=== PATIENT | male | born 1945 | race Caucasian/White ===

== ENCOUNTER 2016-09-07 12:01 | Inpatient (IN) | payer MEDICARE ==
--- NOTE | 2016-09-07 12:48 | ERNOTE ---
Dyspnea - Date Date of Service: 09/07/16 - General Presenting Symptoms: shortness of breath Time Seen by Provider: 09/07/16 12:27 Source: patient Exam Limitations: no limitations - Immun/Allergies/Home Medications Immunizations: IMMUNIZATION HX Immunizations Up to Date Yes History of Influenza Vaccine Yes Hx Pneumococcal Vaccination Yes Allergies/Adverse Reactions: Allergies No Known Allergies Allergy (Unverified 08/24/16 12:58) Home Medications: HOME MEDICATIONS Aspirin [Aspirin Enteric Coated] 81 mg PO DAILY 08/24/16 [Last Taken Unknown] Cholecalciferol (Vitamin D3) [Vitamin D3] 2,000 unit PO DAILY 08/24/16 [Last Taken Unknown] Dexlansoprazole [Dexilant] 30 mg PO DAILY 08/24/16 [Last Taken Unknown] Ferrousal 325 mg PO DAILY 08/24/16 [Last Taken Unknown] Finasteride [Proscar] 5 mg PO DAILY 08/24/16 [Last Taken Unknown] Fluticasone Propionate [Flonase] 1 spray NS BID 08/24/16 [Last Taken Unknown] Glipizide [Glucotrol] 10 mg PO BID 08/24/16 [Last Taken Unknown] Indoor/Outdoor Allergy Relief 10 mg PO DAILY 08/24/16 [Last Taken Unknown] Lisinopril [Zestril] 20 mg PO DAILY 08/24/16 [Last Taken Unknown] Metoprolol Tartrate [Lopressor] 50 mg PO BID 08/24/16 [Last Taken Unknown] Nitroglycerin [Nitrostat] 0.4 mg SL [id number] PRN 08/24/16 [Last Taken Unknown] Pioglitazone HCl/Metformin HCl [Actoplus Met 15 mg-500 mg Tab] 1 each PO BID [Last Taken Unknown] Rosuvastatin Calcium [Crestor] 10 mg PO DAILY 08/24/16 [Last Taken Unknown] Ticagrelor [Brilinta] 90 mg PO BID 08/24/16 [Last Taken Unknown] Morphine Sulfate [Ms Contin] 15 mg PO Q12H #20 tablet.sa 08/28/16 [Last Taken Unknown] Sennosides/Docusate Sodium [Senokot-S] 2 tab PO HS tablet 08/28/16 [Last Taken Unknown] - History of Present Illness Narrative: Pt. comes in with c/o dyspnea for the past three weeks that worsened suddenly yesterday. Pt. has been taking long and short acting morphine for pain and states that he sometimes forgets to breathe but has not had any other symptoms. Pt. denies any fever, cough, rhinorrhea, CP, leg swelling. or other symptoms at this time. Review of Systems - Review of Systems Constitutional: Present: weakness, fatigue. Absent: recent illness, fever, chills, malaise EYE: Present: no symptoms reported ENT: Present: no symptoms reported Respiratory: Present: shortness of breath. Absent: cough, wheezing Cardiology: Present: no symptoms reported. Absent: chest pain, palpitations, edema Gastrointestinal/Abdominal: Present: no symptoms reported. Absent: nausea, vomiting, diarrhea, constipation, abdominal pain Genitourinary: Present: no symptoms reported Musculoskeletal: Present: no symptoms reported. Absent: back pain, joint pain Skin: Present: no symptoms reported Neurological: Present: no symptoms reported. Absent: headache, dizziness/light- headedness, numbness, tingling All Other Systems: All systems neg except as marked - Patient's Past Medical History Patient History - Medical: Diabetes Type 2 Patient History - Cancer: No Hx of Cancer Patient History - Surgical Procedures: Appendectomy, Coronary Bypass Surgery, Cardiac stent - Family History Mother Family History - Medical: Diabetes Type 2 - Social History Living Situations: spouse Smoking Status: Former smoker Physical Exam - Physical Exam General Appearance: Present: wd/wn, alert, no apparent distress Eye Exam: Normal inspection: bilateral, PERRL: bilateral, EOMI: bilateral Ears, Nose, Throat: Present: normal ENT inspection, hearing grossly normal, normal pharynx Neck: Present: normal inspection, nontender. Absent: lymphadenopathy (R), lymphadenopathy (L) Respiratory: Present: no respiratory distress, no accessory muscle use, chest nontender, decreased breath sounds Cardiovascular/Chest: Present: regular rate, rhythm, no murmur, normal peripheral pulses Gastrointestinal/Abdominal: Present: normal bowel sounds, nontender, nondistended, soft, no organomegaly Extremity Exam: Present: normal inspection, non-tender, no edema, decreased range of motion - L hip Neurological Exam: Present: alert, oriented, normal mood/affect, no motor/ sensory deficits, motor weakness - generalized Skin Exam: Present: warm/dry, pallor ED Progress - Date and Time Seen: Date and Time: 09/07/16 12:47 Given pt. recent history of hip replacement am concerned for narcotic related pneumonia or PE. 09/07/16 16:31 Discussed risks and benefits of CT including renal failure and Pt. gave permission to proceed with the CT scan 09/07/16 17:[address] Amor and we will admit pt. for observation of dehydration and SOB - Results and Orders Patient's Lab Results:: I have reviewed the patient's lab results. - Vital Signs Patient's Vital Signs:: I have reviewed the patient's vital signs. Vital Signs: Vital Signs 09/07/16 12:06 Temperature 36.6 C Pulse Rate 73 Respiratory 20 Rate Blood Pressure 92/50 O2 Sat by Pulse 97 Oximetry - CT/Ultrasound CT/Ultrasound Narrative: CT chest discussed with Dr Cortés and Pt. without central PE but has ground glass opacities BLL. - Progress/Reassessment Chief Complaint: Dyspnea Departure Clinical Impression: Shortness of breath, Dehydration - Departure Disposition: [facility] Condition: Fair Referrals: [Primary Care Provider] -
[2016-09-07 12:52] LABS: Hematocrit 32.1 % (42.0-52.0); Hemoglobin 10.2 gm/dL (13.5-18.0); Mean Cell Volume 80.5 fl (78-100); Mean Corpuscular Hemoglobin 25.6 pg (27-31); Mean Corpuscular Hgb Conc 31.8 g/dl (32-36); Mean Platelet Volume 8.7 fl (6.0-9.5); Neutrophil # 7.5 K/mm3 (1.3-6.0); Neutrophil % 78.9 % (42-75.0); Platelet Count 356 K/mm3 (150-450); Red Blood Count 3.99 M/mm3 (4.7-6.0); Red Cell Distribution Width 16.4 % (11.5-14.0); White Blood Count 9.5 K/mm3 (4.0-10.5)
[2016-09-07 13:05] LABS: Albumin * 3.1 gm/dl (3.4-5.0); Anion Gap 18.4 mmol/L (6.8-13.8); BUN/Creatinine Ratio 18.8 (9.0-21.6); Bilirubin, Total 0.6 mg/dL (0.0-1.1); Ca. Corrected For Albumin 9.1 mg/dL (8.4-10.2); Calcium * 8.7 mg/dL (7.9-10.9); Carbon Dioxide 23.5 mmol/L (24-32.6); Potassium 4.9 mmol/L (3.4-4.6); Total Protein 7.5 gm/dL (6.2-8.2)
[2016-09-07] MEDS ORDERED: NORMAL SALINE 1,000 ML IV ONE (13:18)
[2016-09-07] MEDS ORDERED: ALBUTEROL SULFATE 2.5 MG/0.5 ML VIAL.NEB IH ONE ×2 (18:20→20:25)
[2016-09-07] MEDS ORDERED: ACETAMINOPHEN 500 MG TABLET PO PRN (18:24)
[2016-09-07] MEDS ORDERED: predniSONE 20 MG TABLET PO SCH (18:30)
[2016-09-07] MEDS: NORMAL SALINE 1,000 ML IV PRN (18:52)
[2016-09-07] MEDS ORDERED: NITROGLYCERIN 0.4 MG/TAB BTL SL ONE (21:03)
[2016-09-07] MEDS: NITROGLYCERIN 0.4 MG/TAB BTL SL PRN ×3 (21:06→21:23)
--- NOTE | 2016-09-07 22:05 | HP ---
Chief Complaint - Chief Complaint Date of Service: 09/07/16 Time of Service: 22:04 Chief Complaint: Shortness of breath History of Present Illness: Cesar is a 71 yo male that presented to the [facility] ER with 48 hours of worsening shortness of breath. He was scheduled to see Dr. Gill for post op follow up but was told to go to the ER with his symptoms. In the ER he reported progressive shortness of breath, denied chest pain. D-dimer was elevated, chest xray non acute. A chest CT was performed which showed some ground glass appearance but otherwise no acute findings. Due to significant dyspnea he was placed on oxygen and requested admit for observation and further evaluation. - Patient's Past Medical History Patient History - Medical: Diabetes Type 2, Osteoarthritis Patient History - Cardiac/Respiratory: Coronary Heart Disease, Hypertension, Hyperlipidemia Patient History - Cancer: No Hx of Cancer Patient History - Surgical Procedures: Appendectomy, Coronary Bypass Surgery, Cardiac stent, Total Hip Replacement - Family History Mother Family History - Medical: Diabetes Type 2 - Social History Living Situations: spouse Smoking Status: Former smoker Have you smoked in the past 12 months: No Alcohol Use: none Drug Use: none Review Of Systems (GEN) - Review of Systems Generalized/Overall Review: Present: Weakness. Absent: Chills, Fever EENTM: Present: No Symptoms Reported Respiratory: Present: Shortness of Breath. Absent: Cough Cardiac: Present: Chest Pain. Absent: Palpitations, Syncope Abdominal: Absent: Nausea, Vomiting, Hematemesis, Abdominal Pain Genitourinary: Present: No Symptoms Reported Musculoskeletal: Present: No Symptoms Reported Neurological: Present: No Symptoms Reported Skin: Present: No Symptoms Reported Allergies/Adverse Reactions: Allergies Allergy/AdvReac Type Severity Reaction Status Date / Time No Known Allergies Allergy Verified 09/07/16 17:47 Home Medications: HOME MEDICATIONS Aspirin [Aspirin Enteric Coated] 81 mg PO DAILY 08/24/16 [Last Taken Unknown] Cholecalciferol (Vitamin D3) [Vitamin D3] 2,000 unit PO DAILY 08/24/16 [Last Taken Unknown] Dexlansoprazole [Dexilant] 30 mg PO DAILY 08/24/16 [Last Taken Unknown] Ferrousal 325 mg PO DAILY 08/24/16 [Last Taken Unknown] Finasteride [Proscar] 5 mg PO DAILY 08/24/16 [Last Taken Unknown] Fluticasone Propionate [Flonase] 1 spray NS BID 08/24/16 [Last Taken Unknown] Glipizide [Glucotrol] 10 mg PO BID 08/24/16 [Last Taken Unknown] Indoor/Outdoor Allergy Relief 10 mg PO DAILY 08/24/16 [Last Taken Unknown] Lisinopril [Zestril] 20 mg PO DAILY 08/24/16 [Last Taken Unknown] Metoprolol Tartrate [Lopressor] 50 mg PO BID 08/24/16 [Last Taken Unknown] Nitroglycerin [Nitrostat] 0.4 mg SL [id number] PRN 08/24/16 [Last Taken Unknown] Pioglitazone HCl/Metformin HCl [Actoplus Met 15 mg-500 mg Tab] 1 each PO BID [Last Taken Unknown] Rosuvastatin Calcium [Crestor] 10 mg PO DAILY 08/24/16 [Last Taken Unknown] Ticagrelor [Brilinta] 90 mg PO BID 08/24/16 [Last Taken Unknown] Morphine Sulfate [Ms Contin] 15 mg PO Q12H #20 tablet.sa 08/28/16 [Last Taken Unknown] Sennosides/Docusate Sodium [Senokot-S] 2 tab PO HS tablet 08/28/16 [Last Taken Unknown] Exam - Exam Vital Signs: Vital Signs - Last Taken Temp 36.9 C 09/07/16 19:51 Pulse 86 09/07/16 20:37 Resp 20 09/07/16 20:37 BP 145/49 09/07/16 19:51 Pulse Ox 97 09/07/16 20:27 Constitutional: Present: Alert, Oriented x3, Cooperative ENT Exam: Present: hearing grossly normal Eye Exam: bilateral eye: normal inspection Respiratory: Present: lungs clear, normal breath sounds Cardiovascular/Chest: Present: regular rate, rhythm, no murmur Abdomen: Present: Normal bowel sounds, soft, nontender, nondistended Extremity: Present: normal inspection, normal capillary refill Skin Exam: Present: normal color, warm/dry, no cyanosis Lymphatic: Present: no adenopathy Appearance: Present: appropriate appearance, appropriate insight Diagnostic Studies: Laboratory Results WBC 9.5 K/mm3 (4.0-10.5) 09/07/16 12:45 RBC 3.99 M/mm3 (4.7-6.0) L 09/07/16 12:45 Hgb 10.2 gm/dL (13.5-18.0) L 09/07/16 12:45 Hct 32.1 % (42.0-52.0) L 09/07/16 12:45 MCV 80.5 fl (78-100) 09/07/16 12:45 MCH 25.6 pg (27-31) L 09/07/16 12:45 MCHC 31.8 g/dl (32-36) L 09/07/16 12:45 RDW 16.4 % (11.5-14.0) H 09/07/16 12:45 Plt Count 356 K/mm3 (150-450) 09/07/16 12:45 MPV 8.7 fl (6.0-9.5) 09/07/16 12:45 Immature Gran % (Auto) 0.70 % (0.001-0.429) H 09/07/16 12:45 Immature Gran # (Auto) 0.07 K/mm3 (0.000-0.0310) H 09/07/16 12:45 Neutrophils % 78.9 % (42-75.0) H 09/07/16 12:45 Lymphocytes % 9.6 % (20-51) L 09/07/16 12:45 Monocytes % 8.6 % (0.0-9) 09/07/16 12:45 Eosinophils % 1.7 % (0.0-3.0) 09/07/16 12:45 Basophils % 0.5 % (0.0-1.0) 09/07/16 12:45 Nucleated RBC % 0.0 k/mm3 (0-1) 09/07/16 12:45 Neutrophils # 7.5 K/mm3 (1.3-6.0) H 09/07/16 12:45 Lymphocytes # 0.9 k/mm3 (1.5-3.5) L 09/07/16 12:45 Monocytes # 0.8 k/mm3 (0.0-1.0) 09/07/16 12:45 Eosinophils # 0.2 k/mm3 (0.0-0.7) 09/07/16 12:45 Absolute Basophils 0.1 k/mm3 (0.0-0.1) 09/07/16 12:45 D-Dimer 4.33 mg/L (0.19-0.49) H 09/07/16 12:45 Sodium 137 mmol/L (132-142) 09/07/16 12:45 Plasma Sodium 137 mmol/L (130-142) 09/07/16 12:45 Potassium 4.9 mmol/L (3.4-4.6) H 09/07/16 12:45 Chloride 100 mmol/L (97-106) 09/07/16 12:45 Carbon Dioxide 23.5 mmol/L (24-32.6) L 09/07/16 12:45 Anion Gap 18.4 mmol/L (6.8-13.8) H 09/07/16 12:45 BUN 30 mg/dL (6-23) H 09/07/16 12:45 Creatinine 1.60 mg/dL (0.4-1.4) H 09/07/16 12:45 Est GFR (Non-Af Amer) 45 mL/min (60-130) L 09/07/16 12:45 BUN/Creatinine Ratio 18.8 (9.0-21.6) 09/07/16 12:45 Random Glucose 104 mg/dL (70-110) 09/07/16 12:45 Calcium 8.7 mg/dL (7.9-10.9) 09/07/16 12:45 Calcium Adj for Albumin 9.1 mg/dL (8.4-10.2) 09/07/16 12:45 Total Bilirubin 0.6 mg/dL (0.0-1.1) 09/07/16 12:45 AST 16 U/L (0-48) 09/07/16 12:45 ALT 16 U/L (19-67) L 09/07/16 12:45 Alkaline Phosphatase 87 U/L (50-170) 09/07/16 12:45 Troponin I Less than 0.017 ng/ml (0.00-0.10) 09/07/16 21:09 Total Protein 7.5 gm/dL (6.2-8.2) 09/07/16 12:45 Albumin 3.1 gm/dl (3.4-5.0) L 09/07/16 12:45 Assessment/Plan - Assessment/Plan (1) Shortness of breath Assessment: Cesar is a 71 yo male with extensive coronary heart disease. Will place on telemetry, obtain ECG, and obtain serial troponins. No chest pain in the ER or last few days. Patient with slight elevation of creatinine, will give IVFs. Expect 1 midnight stay, will admit to observation. Problem: Acute
[2016-09-08] MEDS: NORMAL SALINE 1,000 ML IV PRN ×2 (03:04→11:20)
[2016-09-08] MEDS ORDERED: HEPARIN SODIUM,PORCINE 5,000 UNITS/ML VIAL IV ONE (07:42)
[2016-09-08] MEDS ORDERED: HEPARIN SODIUM,PORCINE/D5W 25,000 UNITS/500 ML BAG IV SCH (07:45)
--- NOTE | 2016-09-08 08:38 | DS ---
Transfer Discharge Summary - Diagnosis(s)/Problems (1) Shortness of breath Problem: Acute (2) Non-STEMI (non-ST elevated myocardial infarction) Narrative: Cesar is a 71 yo male with extensive coronary heart disease with nearly 20 stents placed in his lifetime. He most recently had 4 stents placed in March 2016. He was admitted for shortness of breath that was progressive over the last 48 hours. Initial evaluation was positive for D-Dimer and ground glass appearance on Chest CT. No PE found. He was not having chest pain outside of the hospital or in the ER. He was admitted for observation with his shortness of breath. Initial troponin was undetectable and ECG was unchanged compared to priors. Once he arrived to the inpatient floor he began having left anterior chest wall heaviness and left arm achiness. There were no ECG changes. He was given nitroglycerin x 3 which resolved his symptoms. The rest of the evening he was symptom free. Repeat Troponin 6 hours later was elevated to critical range of 0.158 (critical above 0.1). He remained symptom free. With rising troponin his cardiology group at [facility] was contacted for transfer for cardiac catheterization. Discussed with Dr. Chamberlain who recommended that he has difficult to access coronary arteries and patient typically has procedures performed by Dr. Suárez at [facility] in [place]. I discussed case with Dr. Suárez who accepted patient transfer and recommended heparin 3000unit bolus and 1000units/hr drip until we can get him transferred to [facility] as there are currently not available beds. As the patient is currently symptom free I agree with this plan of action. Patient to be transferred once a bed becomes available. Problem: Acute - Course Procedures Performed: none - Results and Findings Results and Findings: Laboratory Results - last 24 hr 09/07/16 09/08/16 21:09 05:29 Troponin I Less than 0.017 0.158 H* - Medications Medications: Active Medications Sodium Chloride (Sodium Chloride 0.9%) 1,000 mls @ 125 mls/hr IV .Q8H PRN PRN Reason: HYDRATION Stop: 10/07/16 18:24 Last Admin: 09/08/16 03:04 Dose: 125 mls/hr Heparin Sodium/Dextrose (Heparin 25,000 Units/D5w 500 Ml) 25,000 units in 500 mls @ 20 mls/hr IV Q24H BEBA PRN Reason: 1,000 UNITS/HR Stop: 10/08/16 07:46 Last Admin: 09/08/16 08:05 Dose: 1,000 units/hr, 20 mls/hr Nitroglycerin (Nitrostat) 0.4 mg SL Q5MIN PRN PRN Reason: Chest Pain Stop: 10/07/16 21:06 Last Admin: 09/07/16 21:23 Dose: 0.4 mg Discontinued Medications Albuterol Sulfate (Albuterol Sulfate 2.5 Mg/0.5ml) 2.5 mg IH Q4HRT ONE Stop: 09/07/16 18:21 Last Admin: 09/07/16 20:27 Dose: 2.5 mg Heparin Sodium (Porcine) (Heparin Sodium) 3,000 units IV ONCE ONE Stop: 09/08/16 07:43 Last Admin: 09/08/16 08:04 Dose: 3,000 units Sodium Chloride (Sodium Chloride 0.9%) 1,000 mls @ 999 mls/hr IV .Q1H1M ONE Stop: 09/07/16 14:18 Last Admin: 09/07/16 17:03 Dose: 999 mls/hr Prednisone (Prednisone) 60 mg PO DAILY BEBA Stop: 09/09/16 18:31 Last Admin: 09/07/16 18:53 Dose: 60 mg - Disposition Disposition: Other health care facility Condition: Stable Discharge Date: 09/08/16
[2016-09-08 15:03] VITALS: BP 136/51
== END 2016-09-08 16:10 | disposition short-term general hospital (02) | DRG 282 ==
LOC: ER 12:01 → MS 17:29 → OBSVTOIN 09-08 11:40
PROVIDERS: ADMIT Family Medicine; ATTEND Family Medicine
DX: I21.4 Non-ST elevation (NSTEMI) myocardial infarction (principal); I25.10 Atherosclerotic heart disease of native coronary artery without angina pectoris; I10 Essential (primary) hypertension; E78.5 Hyperlipidemia, unspecified; E11.9 Type 2 diabetes mellitus without complications; Z79.82 Long term (current) use of aspirin; Z95.1 Presence of aortocoronary bypass graft; Z95.5 Presence of coronary angioplasty implant and graft; Z87.891 Personal history of nicotine dependence
CPT/HCPCS: 36415; 71020; 71260; 80053; 84484; 85025; 85379; 85730; 93005; 94640; 96360; 99283; G0378

== ENCOUNTER 2020-07-11 07:06 | Observation (INO) ==
[2020-07-11] MEDS ORDERED: NORMAL SALINE 1,000 ML IV ONE ×3 (07:28→11:07)
[2020-07-11 07:59] LABS: Hematocrit 31.9 % (42.0-52.0); Hemoglobin 9.9 gm/dL (13.5-18.0); Mean Cell Volume 88.9 fl (78-100); Mean Corpuscular Hemoglobin 27.6 pg (27-31); Mean Platelet Volume 9.9 fl (8-11.3); Neutrophil # 10.6 K/mm3 (1.3-6.0); Neutrophil % 73.6 % (42-75.0); Platelet Count 302 K/mm3 (150-450); Red Blood Count 3.59 M/mm3 (4.7-6.0); Red Cell Distribution Width 14.6 % (11.5-14.0); White Blood Count 14.3 K/mm3 (4.0-10.5)
[2020-07-11 08:14] LABS: Albumin * 2.9 gm/dl (3.4-5.0); Anion Gap 15.1 mmol/L (6.8-13.8); BUN/Creatinine Ratio 9.9 (9.0-21.6); Bilirubin, Total 0.4 mg/dL (0.0-1.1); Calcium * 8.4 mg/dL (7.9-10.9); Carbon Dioxide 22.8 mmol/L (24-32.6); Potassium 3.9 mmol/L (3.4-4.6); Total Protein 6.7 gm/dL (6.2-8.2)
[2020-07-11 08:31] LABS: Lipase 267 U/L (73-393); Troponin I Less than 0.017 ng/mL (0.00-0.10)
[2020-07-11] MEDS ORDERED: DIATRIZOATE MEGLUMINE, SODIUM 30 ML BTL PO ONE ×2 (09:36)
[2020-07-11] MEDS ORDERED: ONDANSETRON HCL/PF 2 MG/ML VIAL IV ONE (09:37)
[2020-07-11 11:52] LABS: Urine Bilirubin 1 mg/dl (NEGATIVE); Urine Blood 250 /ul (NEGATIVE); Urine Ketone 15 mg/dL (NEGATIVE); Urine Protein 100 mg/dL (NEGATIVE); Urine Specific Gravity >=1.030 SP.GR. (1.005-1.030); Urine Urobilinogen Normal (NORMAL)
[2020-07-11 12:03] LABS: Urine Appearance Cloudy (CLEAR); Urine Bacteria 4+; Urine Color Amber; Urine Nitrite Positive (NEGATIVE); Urine RBC >50 /hpf (0-5)
[2020-07-11] MEDS ORDERED: cefTRIAXone SODIUM 1,000 MG/100 ML BAG IV ONE (12:40)
--- NOTE | 2020-07-11 15:25 | ERNOTE ---
Medical Problem HPI - Narrative Date of Service: 07/11/20 - General Chief Complaint: General Assessment Time Seen by Provider: 07/11/20 07:59 Source: patient, family Exam Limitations: no limitations - Immun/Allergies/Home Medications Immunizations: IMMUNIZATION HX Immunizations Up to Date Yes History of Influenza Vaccine Yes Hx Pneumococcal Vaccination No Allergies/Adverse Reactions: Allergies No Known Allergies Allergy (Verified 07/11/20 07:15) Home Medications: HOME MEDICATIONS Aspirin [Aspirin Enteric Coated] 81 mg PO DAILY 08/24/16 [Last Taken Unknown] Dexlansoprazole [Dexilant] 30 mg PO DAILY 08/24/16 [Last Taken Unknown] Finasteride [Proscar] 5 mg PO DAILY 08/24/16 [Last Taken Unknown] Lisinopril [Zestril] 20 mg PO DAILY 08/24/16 [Last Taken Unknown] Metoprolol Tartrate [Lopressor] 50 mg PO BID 08/24/16 [Last Taken Unknown] Nitroglycerin [Nitrostat] 0.4 mg SL [id number] PRN 08/24/16 [Last Taken Unknown] Pioglitazone HCl/Metformin HCl [Actoplus Met 15 mg-500 mg Tab] 1 ea PO BID 08/24/16 [Last Taken Unknown] glipiZIDE [Glucotrol] 10 mg PO BID 08/24/16 [Last Taken Unknown] prasugrel 10 mg tablet 10 mg PO DAILY 03/15/18 [Last Taken Unknown] rosuvastatin 10 mg tablet 20 mg PO DAILY tab 03/15/18 [Last Taken Unknown] ascorbic acid (vitamin C) 500 mg capsule 500 mg PO DAILY cap 02/01/19 [Last Taken Unknown] ferrous fumarate 89 mg (29 mg iron) tablet 89 mg PO TID 02/01/19 [Last Taken Unknown] clotrimazole-betamethasone 1 %-0.05 % topical cream 1 applic TOPICAL BID 14 Days #45 g 02/27/20 [Last Taken Unknown] Acyclovir [Zovirax] 800 mg PO 5XD #50 tab 06/16/20 [Last Taken Unknown] Cephalexin Monohydrate [Keflex] 500 mg PO QID #40 cap 06/16/20 [Last Taken Unknown] predniSONE [Prednisone] 2 tab PO DAILY #10 tab 06/16/20 [Last Taken Unknown] - History of Present History Narrative: Patient presents to the ED for evaluation after near syncopal episode. 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 Has been feeling constipated. Feeling more abdominal bloating. Has been straining to have stool. This am vomited and became lightheaded and pale, nearly collapsed, "white as a sheet". Brought here. Noted to be orthostatic. No CP or SOB. No fever. Is having some blood in his urine. Now feeling better. Has never had anything like this before. having some increased bloating and pain in his abdo men Timing: other - getting better Severity: severe Modifying Factors - (Improves): Present: other - nothing Modifying Factors - (Worsens): Present: other - nothing Review of Systems - Review of Systems Constitutional: Absent: fever EYE: Present: no symptoms reported Respiratory: Absent: shortness of breath Cardiology: Absent: chest pain Gastrointestinal/Abdominal: Present: vomiting, abdominal pain Genitourinary: Present: See HPI All Other Systems: All systems neg except as marked Medical History (Last Reviewed 07/11/20 @ 15:19 by Mak Kirk MD) BPH (benign prostatic hyperplasia) CAD (coronary artery disease) DJD (degenerative joint disease) Onset Date: ~2015 left hip Diabetes Onset Date: ~1995 FH: colonic polyps Hyperlipidemia Hypertension Reflux esophagitis Surgical History: Surgical History (Last Reviewed 07/11/20 @ 15:19 by Mak Kirk MD) History of kidney surgery tumor removed left kidney, unsure 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 H/O esophagogastroduodenoscopy Onset Date: Unknown Steven-. esophagitis w/reflux, chronic inflammation. 07/16/11 [place]- clotest negative, gastric tissue benign. H/O heart artery stent Onset Date: Unknown 08/13, 09/2009, 01/2016, 09/07/16 History of appendectomy Onset Date: ~1968 History of cataract surgery Onset Date: Unknown History of colonoscopy Onset Date: Unknown 10/2004 [place]-tubular adenoma, hyperplastic polyp. Feliz-tubular adenoma History of total left hip replacement Onset Date: ~08/2016 [place] Hx of CABG S/P TURP (status post transurethral resection of prostate) Onset Date: ~2010 Dr. Otero S/P placement of cardiac pacemaker Onset Date: Unknown 2004, 2015 coronary artery bypassgraft Onset Date: ~1999 Family History: Family History (Last Reviewed 07/11/20 @ 15:19 by Mak Kirk MD) Brother Heart disease Father , age 63-esophageal ca Esophageal cancer Mother , age 74-diabetes Diabetes Brother , age 63-heart disease Heart disease Diabetes Social History: (Last Reviewed 07/11/20 @ 15:19 by Mak Kirk MD) Social History: adopted: No Marital status: lives independently: Yes household members: spouse number of children: 3 current occupational status: retired Highest education level completed: high school graduate Service: Yes Service comment: [employer] branch: [employer] status: discharged Tobacco: Smoking Status: Former smoker Alcohol: alcohol intake: current Substance Use: substance use type: does not use Dietary Habits: caffeine: Yes Exercise: Physical activity type: walking Physical activity functional status: independent ambulation frequency: daily duration: 45-60 minutes/day Personal Safety: do you feel safe at home: Yes victim of physical abuse: No victim of emotional abuse: No Physical Exam - Physical Exam General Appearance: Present: alert, no apparent distress Head Exam: Present: normal inspection, no evidence of injury Eye Exam: Normal inspection: bilateral, PERRL: bilateral Ears, Nose, Throat: Present: normal ENT inspection Neck: Present: normal inspection Respiratory: Present: no respiratory distress, normal breath sounds, no accessory muscle use, lungs clear Cardiovascular/Chest: Present: regular rate, rhythm Gastrointestinal/Abdominal: Present: normal bowel sounds, other - tenderenss left abdomen,. bruising noted at surgical site, no evidence of cellulitis Back Exam: Absent: CVA tenderness (R), CVA tenderness (L) Extremity Exam: Present: other - no deformity Neurological Exam: Present: alert, no motor/sensory deficits Skin Exam: Present: normal color, warm/dry Progress - Results and Orders Patient's Lab Results:: I have reviewed the patient's lab results. - Vital Signs Patient's Vital Signs:: I have reviewed the patient's vital signs. Vital Signs: Vital Signs 07/11/20 07:33 07/11/20 10:10 07/11/20 13:04 Temperature 37.3 C Pulse Rate 71 77 Respiratory Rate 16 Blood Pressure 164/70 H O2 Sat by Pulse Oximetry 98 - EKG EKG #1 EKG read: Interp. by me EKG Comments: Paced rhythm rate 76. Non-specific, no STEMI noted. - X-Ray X-Ray #1 X-Ray: abdomen Interpretation: Interp. by me X-ray Comments: I personally reviewed x-ray images as well as official radiology report\\ - CT/Ultrasound CT/Ultrasound Narrative: I reviewed official radiology report for CT abd/Pelvis - Progress/Reassessment Chief Complaint: General Assessment Progress Note-Subjective: 07/11/20 15:[address] obtained. IV abx given. I spoke with Dr Dick ([facility]). It was recommended that the patient be admitted here for IV fluids, trending of hemoglobin, transfusion if needed. Emergent transfer to [facility] for bright red hematuria/etc. S/W Dr Olea and with with Dr Velez who will admit the patient here. Patient is agreeable. Currently stable. Departure Clinical Impression: Perinephric hematoma, Orthostasis, Leukocytosis, Dehydration, Near syncope - Departure Disposition: Still a patient Condition: Fair Referrals: Pawel Walters DO [Primary Care Provider] -
[2020-07-11] MEDS ORDERED: ACETAMINOPHEN 500 MG TABLET PO PRN (16:09)
[2020-07-11] MEDS ORDERED: NITROGLYCERIN 0.4 MG/TAB BTL SL PRN (16:10)
--- NOTE | 2020-07-11 16:25 | CONS ---
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 He was in the hospital until 07/06/2020. He has been feeling pretty good the last couple of days and was out walking around. Today he felt very constipated and was pushing hard to have a bowel movement. He felt dizzy and called for assistance. When he stood up he passed out. He was brought to the emergency room by ambulance. He was found to be orthostatic. Source: patient, RN/MD, RN notes reviewed, old records Exam Limitations: no limitations - History of Present Illness Initial Comments: Apparently in April he fell while getting on a boat and injured his lower back. He had a CT scan which demonstrated a mass on the left kidney. He was seen for this at the [facility]. In the course of his work-up he had replacement of his pacemaker wires, 1 of which was found to be broken on a preoperative chest x- ray. Severity: moderate Modifying Factors - (Worsens): Reports: other - Standing up Modifying Factors - (Improves): Reports: rest Associated Symptoms: other - He has been constipated with bloating. Decreased appetite. No chest pain or palpitations. Allergies/Adverse Reactions: Allergies No Known Allergies Allergy (Verified 07/11/20 07:15) Home Medications: Home Medications Medication Instructions Recorded Last Taken Aspirin [Aspirin Enteric Coated] 81 mg PO DAILY 08/24/16 Unknown Dexlansoprazole [Dexilant] 30 mg PO DAILY 08/24/16 Unknown Finasteride [Proscar] 5 mg PO DAILY 08/24/16 Unknown Lisinopril [Zestril] 20 mg PO DAILY 08/24/16 Unknown Metoprolol Tartrate [Lopressor] 50 mg PO BID 08/24/16 Unknown Nitroglycerin [Nitrostat] 0.4 mg SL [id number] PRN 08/24/16 Unknown Pioglitazone HCl/Metformin HCl 1 ea PO BID 08/24/16 Unknown [Actoplus Met 15 mg-500 mg Tab] glipiZIDE [Glucotrol] 10 mg PO BID 08/24/16 Unknown prasugrel 10 mg tablet 10 mg PO DAILY 03/15/18 Unknown rosuvastatin 10 mg tablet 20 mg PO DAILY tab 03/15/18 Unknown ascorbic acid (vitamin C) 500 mg 500 mg PO DAILY cap 02/01/19 Unknown capsule ferrous fumarate 89 mg (29 mg 89 mg PO TID 02/01/19 Unknown iron) tablet clotrimazole-betamethasone 1 1 applic TOPICAL BID 14 Days #45 g 02/27/20 Unknown %-0.05 % topical cream Acyclovir [Zovirax] 800 mg PO 5XD #50 tab 06/16/20 Unknown Cephalexin Monohydrate [Keflex] 500 mg PO QID #40 cap 06/16/20 Unknown predniSONE [Prednisone] 2 tab PO DAILY #10 tab 06/16/20 Unknown Procedures Esophagogastroduodenoscopy [EGD] with closed biopsy (07/16/11) Other suture of tendon (07/01/05) Replacement of Left Hip Joint with Synthetic Substitute, Open Approach (08/25/16) Review of Systems - Review of Systems Generalized/Overall Review: Present: Weakness. Absent: Chills, Fever EENTM: Present: No Symptoms Reported Respiratory: Present: Other - Dyspnea on exertion, but no shortness of breath at rest. No recent cough Cardiac: Present: Edema - He always has a little swelling in his ankles. No calf pain. Absent: Chest Pain, Palpitations Abdominal: Present: Other - He has incisional discomfort. He has not had any drainage from the left lower quadrant drain site. He feels very bloated. He had not had a bowel movement after surgery because of the pain medication. He was given MiraLAX. He had not moved his bowels for 2-1/2 days but did some today Genitourinary: Present: Other - Urine is a little dark, no marta blood. Absent: Burning, Incontinent Musculoskeletal: Present: Joint Pain, Back Pain - Chronic Neurological: Present: Other - No focal neurologic symptoms. He was dizzy when he stood up quickly. No seizures Skin: Present: No Symptoms Reported Endocrine: Present: No Symptoms Reported Physical Examination - Exam Vital Signs: Vital Signs - Last Taken Temp 37.3 C 07/11/20 15:50 Pulse 77 07/11/20 15:50 Resp 16 07/11/20 15:50 BP 153/62 H 07/11/20 15:50 Pulse Ox 98 07/11/20 15:50 O2 Oxygen Delivery Method Room Air Constitutional: Present: Alert, Oriented x3, Well nourished, Mild distress ENT Exam: Present: normal ENT inspection, other - Mallampati 2 airway Eye Exam: bilateral eye: normal inspection Neck: Present: normal inspection Respiratory: Present: lungs clear. Absent: respiratory distress Cardiovascular/Chest: Present: normal peripheral pulses, regular rate, rhythm, systolic murmur Abdomen: Present: distended - Very tympanic to percussion. No percussion tenderness. His left lower quadrant incision and port sites appear to be healing well. 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, no motor/sensory deficits Appearance: Present: appropriate appearance, appropriate insight, no memory impairment Eye contact: Present: cooperative, good eye contact, normal speech Thoughts: Present: normal thought pattern - Results and Findings: Lab/Microbiology results last 24 hrs: Abnormal/Pending Laboratory Last 24 HRS 07/11/20 07/11/20 07/11/20 11:30 11:09 07:49 WBC RBC Hgb Hct MCHC RDW Immature Gran % (Auto) Immature Gran # (Auto) Lymphocytes % Eosinophils % Neutrophils # Monocytes # Carbon Dioxide 22.8 L Anion Gap 15.1 H Creatinine 1.61 H Est GFR (Non-Af Amer) 45 L Random Glucose 243 H Lactic Acid, Venous 2.3 H* ALT 17 L Albumin 2.9 L Urine Protein 100 H Urine Glucose (UA) 100 H Urine Blood 250 H Urine Nitrate Positive H Urine Bilirubin 1 H Prot Sulfosalicylic Acd 2+ H Ur Leukocyte Esterase 25 H Urine RBC >50 H Urine WBC 10-25 H Urine Bacteria 4+ H 07/11/20 07/11/20 07:49 07:40 WBC 14.3 H RBC 3.59 L Hgb 9.9 L Hct 31.9 L MCHC 31.0 L RDW 14.6 H Immature Gran % (Auto) 1.00 H Immature Gran # (Auto) 0.14 H Lymphocytes % 13.6 L Eosinophils % 3.5 H Neutrophils # 10.6 H Monocytes # 1.1 H Carbon Dioxide Anion Gap Creatinine Est GFR (Non-Af Amer) Random Glucose Lactic Acid, Venous 2.3 H* ALT Albumin Urine Protein Urine Glucose (UA) Urine Blood Urine Nitrate Urine Bilirubin Prot Sulfosalicylic Acd Ur Leukocyte Esterase Urine RBC Urine WBC Urine Bacteria - Assessments/Findings (1) Dehydration Diagnosis(s): His urine specific gravity is high and he is orthostatic. I expect with rehydration his hemodynamics will improve, however expect his hemoglobin to decrease further. We will need to monitor this Problem: Acute (2) Near syncope Problem: Acute (3) Orthostasis Problem: Acute (4) Perinephric hematoma Diagnosis(s): According to the patient's history, there was some concern over bleeding around the kidney even while he was still in the hospital. There was not much drainage from the drain and so it was removed. He does not have gross hematuria. We will need to monitor hemoglobin /hematocrit; as he is rehydrated this will probably decrease further. He should be transfused as needed, preferably to a hemoglobin of greater than 9 to protect his heart Should he have an increasing transfusion requirement or become hemodynamically unstable he should [facility] Problem: Acute (5) Acute blood loss anemia Diagnosis(s): His last hemoglobin here was 10.2 in 2017. He states his last hemoglobin after operation at the [place] was 10.7. He states they were concerned about some bleeding but then decided to send him home. He should have serial hemoglobin and hematocrit determinations. I expect his hemoglobin of 8 will decrease with hydration, so he should be transfused to maintain a hemoglobin of greater than 9 g. Problem: Acute (6) GERD (gastroesophageal reflux disease) Diagnosis(s): He does have a history of GERD. Will elevate the head of the bed and continue his PPI He has abdominal distention and so should be kept at n.p.o. status with exception of essential medications. He has been constipated, presumably from pain medication and ileus from operatio n. Hopefully the CT contrast will help, and I have ordered a dose of MiraLAX Problem: Chronic
[2020-07-11 16:47] LABS: Hematocrit 25.7 % (42.0-52.0)
--- NOTE | 2020-07-11 16:55 | HP ---
Chief Complaint - Chief Complaint Date of Service: 07/11/20 Time of Service: 16:36 Chief Complaint: I passed out this morning. History of Present Illness: 75-year-old male with past medical history of type 2 diabetes, morbid obesity, hypertension, BPH, coronary artery disease status post quadruple bypass, multiple stent placement, pacemaker status, chronic kidney disease, status post left partial nephrectomy postop day #8 was evaluated in the ER for a syncopal episode that occurred in his home earlier this morning. Patient reports he underwent a partial left nephrectomy in order to remove a kidney tumor up at the [facility] 8 days ago. He says he was feeling fine and was healing with no issues, he denied any fever or chills. He got up this morning to use the bathroom and passed out after moving his bowels. Patient reports that he has been constipated ever since he started taking the opioids he was prescribed to manage his postop pain, he finally started weaning himself off of the medication and started using MiraLAX for his constipation. This morning he finally felt the urge to move his bowels and was able to alleviate his constipation by passing stools. However when he went to get up from the toilet he suddenly became dizzy and called out to his daughters, when they came running to him they found the patient on the toilet and looking very pale. He told him that he wanted to go lay down in his recliner and when he got up to attempt to do so he passed out, his daughters caught him before falling onto the floor. They then called EMS who arrived shortly and evaluated the patient and he was determined that he should be taken to the hospital. The patient was transported to the ER and his daughter's car and once there he underwent labs which revealed leukocytosis and elevated lactic levels. The patient was immediately started on IV fluids and IV antibiotics. ER physician contacted the surgeon who performed the nephrectomy and the urologist and recommendation to keep the patient here for monitoring of hemoglobin levels was made. The patient was discovered to have an evolving left perinephric hematoma most likely secondary to his surgery however for the moment it looks stable. The [facility] doctor recommended trending his hemoglobin with a plan to transfuse if it becomes necessary. He also recommended to continue IV fluid and IV hydration. Medical History (Last Reviewed 07/11/20 @ 15:19 by Mak Kirk MD) BPH (benign prostatic hyperplasia) CAD (coronary artery disease) DJD (degenerative joint disease) Onset Date: ~2015 left hip Diabetes Onset Date: ~1995 FH: colonic polyps Hyperlipidemia Hypertension Reflux esophagitis Surgical History: Surgical History (Last Reviewed 07/11/20 @ 15:19 by Mak Kirk MD) History of kidney surgery tumor removed left kidney, unsure 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 H/O esophagogastroduodenoscopy Onset Date: Unknown -. esophagitis w/reflux, chronic inflammation. 07/16/11 [place]- clotest negative, gastric tissue benign. H/O heart artery stent Onset Date: Unknown 08/13, 09/2009, 01/2016, 09/07/16 History of appendectomy Onset Date: ~1968 History of cataract surgery Onset Date: Unknown History of colonoscopy Onset Date: Unknown 10/2004 [place]-tubular adenoma, hyperplastic polyp. [place]-tubular adenoma History of total left hip replacement Onset Date: ~08/2016 [place] Hx of CABG S/P TURP (status post transurethral resection of prostate) Onset Date: ~2010 Dr. Otero S/P placement of cardiac pacemaker Onset Date: Unknown 2015 coronary artery bypassgraft Onset Date: ~1999 Family History: Family History (Last Reviewed 07/11/20 @ 15:19 by Mak Kirk MD) Brother Heart disease Father , age 63-esophageal ca Esophageal cancer Mother , age 74-diabetes Diabetes Brother , age 63-heart disease Heart disease Diabetes Social History: (Last Reviewed 07/11/20 @ 15:19 by Mak Kirk MD) Social History: adopted: No Marital status: lives independently: Yes household members: spouse number of children: 3 current occupational status: retired Highest education level completed: high school graduate Service: Yes Service comment: [employer] branch: [employer] status: discharged Tobacco: Smoking Status: Former smoker Alcohol: alcohol intake: current Substance Use: substance use type: does not use Dietary Habits: caffeine: Yes Exercise: Physical activity type: walking Physical activity functional status: independent ambulation frequency: daily duration: 45-60 minutes/day Personal Safety: do you feel safe at home: Yes victim of physical abuse: No victim of emotional abuse: No Peds Patient Hx - Developmental: No Pertinent Hx Peds Patient Hx - Medical: No Pertinent Hx Peds Patient Hx - Cardiac/Respiratory: No Pertinent Hx Peds Patient Hx - Surgical: No Surgical History Patient History - Cancer: No Hx of Cancer Review Of Systems (GEN) - Review of Systems Generalized/Overall Review: Absent: Chills, Fever, Fatigue EENTM: Present: No Symptoms Reported Respiratory: Present: No Symptoms Reported Cardiac: Present: No Symptoms Reported Abdominal: Present: Nausea, Vomiting, Abdominal Pain, Constipation Genitourinary: Present: No Symptoms Reported Musculoskeletal: Present: No Symptoms Reported Neurological: Present: Other - Syncopal episode this morning Skin: Present: No Symptoms Reported Endocrine: Present: No Symptoms Reported Immunizations: IMMUNIZATION HX Immunizations Up to Date Yes History of Influenza Vaccine Yes Hx Pneumococcal Vaccination No Allergies/Adverse Reactions: Allergies Allergy/AdvReac Type Severity Reaction Status Date / Time No Known Allergies Allergy Verified 07/11/20 07:15 Home Medications: HOME MEDICATIONS Aspirin [Aspirin Enteric Coated] 81 mg PO DAILY 08/24/16 [Last Taken Unknown] Dexlansoprazole [Dexilant] 30 mg PO DAILY 08/24/16 [Last Taken Unknown] Finasteride [Proscar] 5 mg PO DAILY 08/24/16 [Last Taken Unknown] Lisinopril [Zestril] 20 mg PO DAILY 08/24/16 [Last Taken Unknown] Metoprolol Tartrate [Lopressor] 50 mg PO BID 08/24/16 [Last Taken Unknown] Nitroglycerin [Nitrostat] 0.4 mg SL [id number] PRN 08/24/16 [Last Taken Unknown] Pioglitazone HCl/Metformin HCl [Actoplus Met 15 mg-500 mg Tab] 1 ea PO BID 08/24/16 [Last Taken Unknown] glipiZIDE [Glucotrol] 10 mg PO BID 08/24/16 [Last Taken Unknown] prasugrel 10 mg tablet 10 mg PO DAILY 03/15/18 [Last Taken Unknown] rosuvastatin 10 mg tablet 20 mg PO DAILY tab 03/15/18 [Last Taken Unknown] ascorbic acid (vitamin C) 500 mg capsule 500 mg PO DAILY cap 02/01/19 [Last Taken Unknown] ferrous fumarate 89 mg (29 mg iron) tablet 89 mg PO TID 02/01/19 [Last Taken Unknown] clotrimazole-betamethasone 1 %-0.05 % topical cream 1 applic TOPICAL BID 14 Days #45 g 02/27/20 [Last Taken Unknown] Acyclovir [Zovirax] 800 mg PO 5XD #50 tab 06/16/20 [Last Taken Unknown] Cephalexin Monohydrate [Keflex] 500 mg PO QID #40 cap 06/16/20 [Last Taken Unknown] predniSONE [Prednisone] 2 tab PO DAILY #10 tab 06/16/20 [Last Taken Unknown] Exam - Exam Vital Signs: Vital Signs - Last Taken Temp 36.9 C 07/11/20 15:52 Pulse 81 07/11/20 15:52 Resp 16 07/11/20 15:52 BP 144/63 07/11/20 15:52 Pulse Ox 96 07/11/20 15:52 Constitutional: Present: Alert, Oriented x3, Cooperative, Well developed, Well nourished, No distress, Obese ENT Exam: Present: normal ENT inspection, hearing grossly normal, pharynx normal, TMs normal Eye Exam: bilateral eye: normal inspection, PERRL, EOMI Neck: Present: non-tender, full range of motion, supple, normal inspection, trachea midline Back Exam: Present: normal inspection Breasts: Present: Exam deferred Respiratory: Present: chest non-tender, lungs clear, normal breath sounds, no respiratory distress, no accessory muscle use Cardiovascular/Chest: Present: normal peripheral pulses, regular rate, rhythm, no chest tenderness, no edema, no gallop, no JVD, no murmur, no rub Peripheral Pulses: dorsalis-pedis (R): 3+, dorsalis-pedis (L): 3+ Abdomen: Present: Normal bowel sounds, soft, nontender, nondistended, no rebound tenderness, no hepatospenomegaly, no masses, obese, other - Multiple small partially healed surgical wounds on left side of abdomen /Rectal: Present: Exam deferred Extremity: Present: normal range of motion, non-tender, normal inspection, no pedal edema, no calf tenderness, normal capillary refill, pelvis stable Skin Exam: Present: normal color, warm/dry, no cyanosis Lymphatic: Present: no adenopathy Neurologic: Present: 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, no motor/sensory deficits, alert, normal mood/affect, oriented x 3 Appearance: Present: appropriate appearance, appropriate insight, neat, no memory impairment Eye contact: Present: cooperative, good eye contact, normal speech Thoughts: Present: normal thought pattern, no apparent hallucination Diagnostic Studies: Abnormal Lab Results 07/11/20 07/11/20 07/11/20 Range/Units 07:40 07:49 07:49 WBC 14.3 H (4.0-10.5) K/mm3 RBC 3.59 L (4.7-6.0) M/mm3 Hgb 9.9 L (13.5-18.0) gm/dL Hct 31.9 L (42.0-52.0) % MCHC 31.0 L (32-36) g/dl RDW 14.6 H (11.5-14.0) % Immature Gran % (Auto) 1.00 H (0.001-0.429) % Immature Gran # (Auto) 0.14 H (0.000-0.0310) K/mm3 Lymphocytes % 13.6 L (20-51) % Eosinophils % 3.5 H (0.0-3.0) % Neutrophils # 10.6 H (1.3-6.0) K/mm3 Monocytes # 1.1 H (0.0-1.0) k/mm3 Carbon Dioxide 22.8 L (24-32.6) mmol/L Anion Gap 15.1 H (6.8-13.8) mmol/L Creatinine 1.61 H (0.4-1.4) mg/dL Est GFR (Non-Af Amer) 45 L (60-130) mL/min Random Glucose 243 H (70-110) mg/dL Lactic Acid, Venous 2.3 H* (0.4-2.0) mmol/L ALT 17 L (19-67) U/L Albumin 2.9 L (3.4-5.0) gm/dl Urine Protein (NEGATIVE) mg/dL Urine Glucose (UA) (NEGATIVE) mg/dL Urine Blood (NEGATIVE) /ul Urine Nitrate (NEGATIVE) Urine Bilirubin (NEGATIVE) mg/dl Prot Sulfosalicylic Acd (0) mg/dL Ur Leukocyte Esterase (NEGATIVE) /ul Urine RBC (0-5) /hpf Urine WBC (0-5) /hpf Urine Bacteria (NONE) 07/11/20 07/11/20 Range/Units 11:09 11:30 WBC (4.0-10.5) K/mm3 RBC (4.7-6.0) M/mm3 Hgb (13.5-18.0) gm/dL Hct (42.0-52.0) % MCHC (32-36) g/dl RDW (11.5-14.0) % Immature Gran % (Auto) (0.001-0.429) % Immature Gran # (Auto) (0.000-0.0310) K/mm3 Lymphocytes % (20-51) % Eosinophils % (0.0-3.0) % Neutrophils # (1.3-6.0) K/mm3 Monocytes # (0.0-1.0) k/mm3 Carbon Dioxide (24-32.6) mmol/L Anion Gap (6.8-13.8) mmol/L Creatinine (0.4-1.4) mg/dL Est GFR (Non-Af Amer) (60-130) mL/min Random Glucose (70-110) mg/dL Lactic Acid, Venous 2.3 H* (0.4-2.0) mmol/L ALT (19-67) U/L Albumin (3.4-5.0) gm/dl Urine Protein 100 H (NEGATIVE) mg/dL Urine Glucose (UA) 100 H (NEGATIVE) mg/dL Urine Blood 250 H (NEGATIVE) /ul Urine Nitrate Positive H (NEGATIVE) Urine Bilirubin 1 H (NEGATIVE) mg/dl Prot Sulfosalicylic Acd 2+ H (0) mg/dL Ur Leukocyte Esterase 25 H (NEGATIVE) /ul Urine RBC >50 H (0-5) /hpf Urine WBC 10-25 H (0-5) /hpf Urine Bacteria 4+ H (NONE) Laboratory Results WBC 14.3 K/mm3 (4.0-10.5) H 07/11/20 07:49 RBC 3.59 M/mm3 (4.7-6.0) L 07/11/20 07:49 Hgb 9.9 gm/dL (13.5-18.0) L 07/11/20 07:49 Hct 31.9 % (42.0-52.0) L 07/11/20 07:49 MCV 88.9 fl (78-100) 07/11/20 07:49 MCH 27.6 pg (27-31) 07/11/20 07:49 MCHC 31.0 g/dl (32-36) L 07/11/20 07:49 RDW 14.6 % (11.5-14.0) H 07/11/20 07:49 Plt Count 302 K/mm3 (150-450) 07/11/20 07:49 MPV 9.9 fl (8-11.3) 07/11/20 07:49 Immature Gran % (Auto) 1.00 % (0.001-0.429) H 07/11/20 07:49 Immature Gran # (Auto) 0.14 K/mm3 (0.000-0.0310) H 07/11/20 07:49 Neutrophils % 73.6 % (42-75.0) 07/11/20 07:49 Lymphocytes % 13.6 % (20-51) L 07/11/20 07:49 Monocytes % 7.7 % (0.0-9) 07/11/20 07:49 Eosinophils % 3.5 % (0.0-3.0) H 07/11/20 07:49 Basophils % 0.6 % (0.0-1.0) 07/11/20 07:49 Nucleated RBC % 0.0 k/mm3 (0-1) 07/11/20 07:49 Neutrophils # 10.6 K/mm3 (1.3-6.0) H 07/11/20 07:49 Lymphocytes # 1.95 k/mm3 (1.5-3.5) 07/11/20 07:49 Monocytes # 1.1 k/mm3 (0.0-1.0) H 07/11/20 07:49 Eosinophils # 0.5 k/mm3 (0.0-0.7) 07/11/20 07:49 Absolute Basophils 0.1 k/mm3 (0.0-0.1) 07/11/20 07:49 Sodium 138 mmol/L (132-142) 07/11/20 07:49 Plasma Sodium 140 mmol/L (130-142) 07/11/20 07:49 Potassium 3.9 mmol/L (3.4-4.6) 07/11/20 07:49 Chloride 104 mmol/L (97-106) 07/11/20 07:49 Carbon Dioxide 22.8 mmol/L (24-32.6) L 07/11/20 07:49 Anion Gap 15.1 mmol/L (6.8-13.8) H 07/11/20 07:49 BUN 16 mg/dL (6-23) 07/11/20 07:49 Creatinine 1.61 mg/dL (0.4-1.4) H 07/11/20 07:49 Est GFR (Non-Af Amer) 45 mL/min (60-130) L 07/11/20 07:49 BUN/Creatinine Ratio 9.9 (9.0-21.6) 07/11/20 07:49 Random Glucose 243 mg/dL (70-110) H 07/11/20 07:49 Lactic Acid, Venous 2.3 mmol/L (0.4-2.0) H* 07/11/20 11:09 Calcium 8.4 mg/dL (7.9-10.9) 07/11/20 07:49 Calcium Adj for Albumin 9.0 mg/dL (8.4-10.2) 07/11/20 07:49 Total Bilirubin 0.4 mg/dL (0.0-1.1) 07/11/20 07:49 AST 22 U/L (0-48) 07/11/20 07:49 ALT 17 U/L (19-67) L 07/11/20 07:49 Alkaline Phosphatase 78 U/L (50-170) 07/11/20 07:49 Troponin I Less than 0.017 ng/mL (0.00-0.10) 07/11/20 07:40 Total Protein 6.7 gm/dL (6.2-8.2) 07/11/20 07:49 Albumin 2.9 gm/dl (3.4-5.0) L 07/11/20 07:49 Lipase 267 U/L (73-393) 07/11/20 07:40 Urine Color Ana María 07/11/20 11:30 Urine Appearance Cloudy (CLEAR) 07/11/20 11:30 Urine pH 5.0 pH (5.0-7.0) 07/11/20 11:30 Ur Specific Scott >=1.030 SP.GR. (1.005-1.030) 07/11/20 11:30 Urine Protein 100 mg/dL (NEGATIVE) H 07/11/20 11:30 Urine Glucose (UA) 100 mg/dL (NEGATIVE) H 07/11/20 11:30 Urine Ketones 15 mg/dL (NEGATIVE) 07/11/20 11:30 Urine Blood 250 /ul (NEGATIVE) H 07/11/20 11:30 Urine Nitrate Positive (NEGATIVE) H 07/11/20 11:30 Urine Bilirubin 1 mg/dl (NEGATIVE) H 07/11/20 11:30 Urine Ictotest Negative (NEGATIVE) 07/11/20 11:30 Prot Sulfosalicylic Acd 2+ mg/dL (0) H 07/11/20 11:30 Urine Urobilinogen Normal EU/dl (NORMAL) 07/11/20 11:30 Ur Leukocyte Esterase 25 /ul (NEGATIVE) H 07/11/20 11:30 Urine RBC >50 /hpf (0-5) H 07/11/20 11:30 Urine WBC 10-25 /hpf (0-5) H 07/11/20 11:30 Ur Epithelial Cells 0-5 /hpf (0-5) 07/11/20 11:30 Urine Bacteria 4+ (NONE) H 07/11/20 11:30 Urine Culture Comments Culture to follow 07/11/20 11:30 SARS-CoV-2 (PCR) Not detected (NotDetected) 07/11/20 13:49 Assessment/Plan - Narrative Narrative: Patient was evaluated medical chart was reviewed and decision to admit for a diagnosis of posthemorrhagic anemia and large left perinephric hematoma was made. Patient was found to have a large but stable hematoma around the surgical site of his left kidney, however the radiologist reported there was no evidence of ongoing bleeding. However as a precaution we will keep the patient overnight for monitoring of his hemoglobin levels and for IV hydration IV antibiotics. Currently he denies any pain and says he only has mild abdominal distention and discomfort, however he had adequate bowel sounds. His routine medications were reconciled so they that they can be administered during the hospitalization. If it becomes necessary the patient will be transferred [facility] to treat his anemia. - Assessment/Plan (1) Acute blood loss anemia Problem: Acute (2) CAD (coronary artery disease) Problem: Chronic (3) Hypertension Problem: Chronic (4) Diabetes mellitus Problem: Chronic Qualifiers: Diabetes mellitus type: type 2 (5) History of partial nephrectomy Problem: Acute (6) UTI (urinary tract infection) Problem: Acute (7) Perinephric hematoma Problem: Acute
[2020-07-11] MEDS: POLYETHYLENE GLYCOL 3350 17 GM PACKET PO SCH (17:30)
[2020-07-11] MEDS: LISINOPRIL 20 MG TABLET PO SCH (17:33)
[2020-07-11] MEDS: FERROUS FUMARATE 89 MG PO SCH (17:38)
[2020-07-11] MEDS: NORMAL SALINE 1,000 ML IV PRN (17:39)
[2020-07-11] MEDS: ACYCLOVIR 800 MG TABLET PO SCH ×2 (18:55→22:00)
[2020-07-11] MEDS: PIOGLITAZONE HCL 15 MG TABLET PO SCH (21:52)
[2020-07-11] MEDS: ROSUVASTATIN CALCIUM 20 MG TABLET PO SCH (21:53)
[2020-07-11] MEDS: metFORMIN HCL 500 MG TABLET PO SCH (21:56)
[2020-07-11] MEDS: glipiZIDE 10 MG TABLET PO SCH (21:57)
[2020-07-11] MEDS: CLOTRIMAZOLE/BETAMET DIPROP 15 APPL TUBE TP SCH ×2 (21:58→22:02)
[2020-07-11] MEDS: METOPROLOL TARTRATE 50 MG TABLET PO SCH (21:58)
[2020-07-11] MEDS: PANTOPRAZOLE SODIUM 20 MG TABLET.DR PO SCH (21:59)
[2020-07-11 22:44] LABS: Hematocrit 24.5 % (42.0-52.0)
[2020-07-11 22:48] LABS: Hemoglobin 7.6 gm/dL (13.5-18.0)
[2020-07-12] MEDS: NORMAL SALINE 1,000 ML IV PRN ×3 (05:56→22:55)
[2020-07-12 06:16] LABS: Hematocrit 27.6 % (42.0-52.0); Hemoglobin 8.8 gm/dL (13.5-18.0); Mean Cell Volume 88.2 fl (78-100); Mean Corpuscular Hemoglobin 28.1 pg (27-31); Mean Corpuscular Hgb Conc 31.9 g/dl (32-36); Mean Platelet Volume 8.9 fl (8-11.3); Neutrophil # 5.3 K/mm3 (1.3-6.0); Neutrophil % 63.9 % (42-75.0); Platelet Count 251 K/mm3 (150-450); Red Blood Count 3.13 M/mm3 (4.7-6.0); Red Cell Distribution Width 14.6 % (11.5-14.0); White Blood Count 8.4 K/mm3 (4.0-10.5)
[2020-07-12 06:43] LABS: Albumin * 2.6 gm/dl (3.4-5.0); Anion Gap 16.9 mmol/L (6.8-13.8); BUN/Creatinine Ratio 9.6 (9.0-21.6); Bilirubin, Total 0.5 mg/dL (0.0-1.1); Ca. Corrected For Albumin 8.9 mg/dL (8.4-10.2); Calcium * 8.1 mg/dL (7.9-10.9); Carbon Dioxide 21.7 mmol/L (24-32.6); Potassium 3.6 mmol/L (3.4-4.6); Total Protein 5.9 gm/dL (6.2-8.2)
[2020-07-12] MEDS: PANTOPRAZOLE SODIUM 20 MG TABLET.DR PO SCH ×2 (06:45→20:28)
[2020-07-12] MEDS: ACYCLOVIR 800 MG TABLET PO SCH ×5 (06:46→22:04)
[2020-07-12] MEDS: CLOTRIMAZOLE/BETAMET DIPROP 15 APPL TUBE TP SCH ×2 (08:09→20:29)
[2020-07-12] MEDS: FINASTERIDE 5 MG TABLET PO SCH (08:31)
[2020-07-12] MEDS: ASCORBIC ACID 500 MG TABLET PO SCH (08:31)
[2020-07-12] MEDS: ASPIRIN 81 MG TABLET.DR PO SCH (08:31)
[2020-07-12] MEDS: glipiZIDE 10 MG TABLET PO SCH ×2 (08:31→20:30)
[2020-07-12] MEDS: PIOGLITAZONE HCL 15 MG TABLET PO SCH ×2 (08:31→20:27)
[2020-07-12] MEDS: METOPROLOL TARTRATE 50 MG TABLET PO SCH ×2 (08:31→20:27)
[2020-07-12] MEDS: metFORMIN HCL 500 MG TABLET PO SCH ×2 (08:31→20:29)
[2020-07-12] MEDS: LISINOPRIL 20 MG TABLET PO SCH (08:34)
[2020-07-12] MEDS: FERROUS FUMARATE 89 MG PO SCH (08:36)
[2020-07-12] MEDS: POLYETHYLENE GLYCOL 3350 17 GM PACKET PO SCH ×2 (08:36→10:05)
--- NOTE | 2020-07-12 09:35 | PN ---
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 He had 2 loose bowel movements and a lot of gas last night. He states his abdomen is much less uncomfortable but is still distended. He feels stronger. His vital signs have remained stable. His initial hemoglobin of 9.9 did decrease to 7.6 however is now back up to 8.8 after 1 unit of packed red blood cells. His fluid balance is positive approximately 4 L - Review of Systems Generalized/Overall Review: Denies: Chills, Fever EENTM: Reports: No Symptoms Reported Respiratory: Denies: Cough, Shortness of Breath Cardiac: Denies: Chest Pain, Palpitations Abdominal: Reports: Other - He still feels distended and filled up after only a little bit to eat, but states his abdomen is a lot less uncomfortable today Genitourinary Symptoms: Denies: Burning Musculoskeletal Complaints: Reports: No Symptoms Reported Neurological: Reports: No Symptoms Reported Skin: Reports: No Symptoms Reported - Vitals Vitals: Last Vital Signs Temp 37.1 C 07/12/20 06:39 Pulse 78 07/12/20 08:34 Resp 14 07/12/20 06:39 BP 142/57 07/12/20 08:34 Pulse Ox 96 07/12/20 06:39 - Abnormal Lab Findings Abnormal Lab Findings: Abnormal Lab Results 07/11/20 07/11/20 07/11/20 Range/Units 11:09 11:30 16:42 RBC (4.7-6.0) M/mm3 Hgb 8.0 L (13.5-18.0) gm/dL Hct 25.7 L (42.0-52.0) % MCHC (32-36) g/dl RDW (11.5-14.0) % Immature Gran % (Auto) (0.001-0.429) % Immature Gran # (Auto) (0.000-0.0310) K/mm3 Lymphocytes % (20-51) % Monocytes % (0.0-9) % Eosinophils % (0.0-3.0) % Carbon Dioxide (24-32.6) mmol/L Anion Gap (6.8-13.8) mmol/L Random Glucose (70-110) mg/dL Lactic Acid, Venous 2.3 H* (0.4-2.0) mmol/L ALT (19-67) U/L Total Protein (6.2-8.2) gm/dL Albumin (3.4-5.0) gm/dl Urine Protein 100 H (NEGATIVE) mg/dL Urine Glucose (UA) 100 H (NEGATIVE) mg/dL Urine Blood 250 H (NEGATIVE) /ul Urine Nitrate Positive H (NEGATIVE) Urine Bilirubin 1 H (NEGATIVE) mg/dl Prot Sulfosalicylic Acd 2+ H (0) mg/dL Ur Leukocyte Esterase 25 H (NEGATIVE) /ul Urine RBC >50 H (0-5) /hpf Urine WBC 10-25 H (0-5) /hpf Urine Bacteria 4+ H (NONE) Crossmatch 07/11/20 07/11/20 07/12/20 Range/Units 21:22 22:42 06:20 RBC 3.13 L (4.7-6.0) M/mm3 Hgb 7.6 L* 8.8 L (13.5-18.0) gm/dL Hct 24.5 L 27.6 L (42.0-52.0) % MCHC 31.9 L (32-36) g/dl RDW 14.6 H (11.5-14.0) % Immature Gran % (Auto) 1.10 H (0.001-0.429) % Immature Gran # (Auto) 0.09 H (0.000-0.0310) K/mm3 Lymphocytes % 19.0 L (20-51) % Monocytes % 10.3 H (0.0-9) % Eosinophils % 5.1 H (0.0-3.0) % Carbon Dioxide (24-32.6) mmol/L Anion Gap (6.8-13.8) mmol/L Random Glucose (70-110) mg/dL Lactic Acid, Venous (0.4-2.0) mmol/L ALT (19-67) U/L Total Protein (6.2-8.2) gm/dL Albumin (3.4-5.0) gm/dl Urine Protein (NEGATIVE) mg/dL Urine Glucose (UA) (NEGATIVE) mg/dL Urine Blood (NEGATIVE) /ul Urine Nitrate (NEGATIVE) Urine Bilirubin (NEGATIVE) mg/dl Prot Sulfosalicylic Acd (0) mg/dL Ur Leukocyte Esterase (NEGATIVE) /ul Urine RBC (0-5) /hpf Urine WBC (0-5) /hpf Urine Bacteria (NONE) Crossmatch See Detail 07/12/20 Range/Units 06:20 RBC (4.7-6.0) M/mm3 Hgb (13.5-18.0) gm/dL Hct (42.0-52.0) % MCHC (32-36) g/dl RDW (11.5-14.0) % Immature Gran % (Auto) (0.001-0.429) % Immature Gran # (Auto) (0.000-0.0310) K/mm3 Lymphocytes % (20-51) % Monocytes % (0.0-9) % Eosinophils % (0.0-3.0) % Carbon Dioxide 21.7 L (24-32.6) mmol/L Anion Gap 16.9 H (6.8-13.8) mmol/L Random Glucose 170 H D (70-110) mg/dL Lactic Acid, Venous (0.4-2.0) mmol/L ALT 16 L (19-67) U/L Total Protein 5.9 L (6.2-8.2) gm/dL Albumin 2.6 L (3.4-5.0) gm/dl Urine Protein (NEGATIVE) mg/dL Urine Glucose (UA) (NEGATIVE) mg/dL Urine Blood (NEGATIVE) /ul Urine Nitrate (NEGATIVE) Urine Bilirubin (NEGATIVE) mg/dl Prot Sulfosalicylic Acd (0) mg/dL Ur Leukocyte Esterase (NEGATIVE) /ul Urine RBC (0-5) /hpf Urine WBC (0-5) /hpf Urine Bacteria (NONE) Crossmatch - Exam Constitutional: Present: Alert, Oriented x3, Cooperative, Well developed, Well nourished, No distress ENT Exam: Present: normal ENT inspection Neck: Present: normal inspection Respiratory: Present: no respiratory distress Cardiovascular/Chest: Present: regular rate, rhythm Abdomen: Present: other - He is still distended and tympanic however is a little softer. There is no percussion tenderness or discrete point tenderness. His incisions appear unchanged from yesterday. There has been no drainage from the previous left lower quadrant drain site /Rectal: Present: Exam deferred Extremity: Present: normal range of motion, no calf tenderness, other - Is pretibial edema is unchanged Skin Exam: Present: pallor Neurologic: Present: distribution superintendent II-XII nml as tested, no motor/sensory deficits Appearance: Present: appropriate appearance, appropriate insight, no memory impairment Eye contact: Present: cooperative, good eye contact, normal speech Thoughts: Present: normal thought pattern Assessment/Plan - Problems/Diagnosis (1) Dehydration Problem: Acute Narrative: His fluid balance is markedly positive with good urine output and increased GFR to normal (2) Near syncope Problem: Acute (3) Orthostasis Problem: Acute Narrative: His mean arterial pressure has remained stable (4) Perinephric hematoma Problem: Acute Narrative: No way to assess for stability unless he was to have another CAT scan--- would not necessarily repeat a scan unless there were indications of a problem/instability (5) Acute blood loss anemia Problem: Acute Narrative: The initial decrease in hemoglobin appears compatible with the amount of IV fluid he has received and his vital signs have remained stable/he feels stronger. An additional unit of packed red blood cells might be advisable given his cardiac history. (6) GERD (gastroesophageal reflux disease) Problem: Chronic Narrative: He is on a PPI. This is aggravated by his abdominal distention due to reflex ileus. Advised him to only eat what he feels like he can, then stop. His diabetic medications have been decreased appropriately to reflect decreased p.o. intake (7) Ileus Problem: Acute Narrative: Would continue with MiraLAX. Will add Dulcolax suppository. He appears to be safe to get out of bed with ambulation if tolerated--- only with standby assist at first. This would help the ileus
--- NOTE | 2020-07-12 10:25 | PN ---
Subjective - Date and Time Seen Date: 07/12/20 Time: 10:11 Subjective Narrative: I feel better. Objective Objective Narrative: 75-year-old male admitted for a left perinephric hematoma, posthemorrhagic anemia, and UTI was evaluated at bedside this morning and was found to be afebrile and in no acute distress. Patient reports feeling much better than when he arrived, especially after being transfused 1 unit of blood. His color has improved and he appears to have regained some strength. The patient was evaluated by the in-house surgeon this morning and he recommended that the patient be treated with suppository laxatives in order to resolve a postop ileus that was seen on imaging. He also says it is very likely that the hematoma is not stable and at the patient is not currently bleeding. However he recommends keeping the patient for an additional day for close monitoring with repeat H&H in order to determine if it is necessary to give the patient a second unit of blood. In the meantime PT was consulted and the patient underwent an uneventful session this morning, the therapist reports that the patient has adequate strength and was able to transfer and ambulate without issues. - Review of Systems Generalized/Overall Review: Reports: No Symptoms Reported EENTM: Reports: No Symptoms Reported Respiratory: Reports: No Symptoms Reported Cardiac: Reports: No Symptoms Reported Abdominal: Reports: No Symptoms Reported Genitourinary Symptoms: Reports: No Symptoms Reported Musculoskeletal Complaints: Reports: No Symptoms Reported Neurological: Reports: No Symptoms Reported Skin: Reports: No Symptoms Reported Endocrine: Reports: No Symptoms Reported - Vitals Vitals: Last Vital Signs Temp 37.1 C 07/12/20 06:39 Pulse 78 07/12/20 08:34 Resp 14 07/12/20 06:39 BP 142/57 07/12/20 08:34 Pulse Ox 96 07/12/20 06:39 - Abnormal Lab Findings Abnormal Lab Findings: Abnormal Lab Results 07/11/20 07/11/20 07/11/20 Range/Units 11:09 11:30 16:42 RBC (4.7-6.0) M/mm3 Hgb 8.0 L (13.5-18.0) gm/dL Hct 25.7 L (42.0-52.0) % MCHC (32-36) g/dl RDW (11.5-14.0) % Immature Gran % (Auto) (0.001-0.429) % Immature Gran # (Auto) (0.000-0.0310) K/mm3 Lymphocytes % (20-51) % Monocytes % (0.0-9) % Eosinophils % (0.0-3.0) % Carbon Dioxide (24-32.6) mmol/L Anion Gap (6.8-13.8) mmol/L Random Glucose (70-110) mg/dL Lactic Acid, Venous 2.3 H* (0.4-2.0) mmol/L ALT (19-67) U/L Total Protein (6.2-8.2) gm/dL Albumin (3.4-5.0) gm/dl Urine Protein 100 H (NEGATIVE) mg/dL Urine Glucose (UA) 100 H (NEGATIVE) mg/dL Urine Blood 250 H (NEGATIVE) /ul Urine Nitrate Positive H (NEGATIVE) Urine Bilirubin 1 H (NEGATIVE) mg/dl Prot Sulfosalicylic Acd 2+ H (0) mg/dL Ur Leukocyte Esterase 25 H (NEGATIVE) /ul Urine RBC >50 H (0-5) /hpf Urine WBC 10-25 H (0-5) /hpf Urine Bacteria 4+ H (NONE) Crossmatch 07/11/20 07/11/20 07/12/20 Range/Units 21:22 22:42 06:20 RBC 3.13 L (4.7-6.0) M/mm3 Hgb 7.6 L* 8.8 L (13.5-18.0) gm/dL Hct 24.5 L 27.6 L (42.0-52.0) % MCHC 31.9 L (32-36) g/dl RDW 14.6 H (11.5-14.0) % Immature Gran % (Auto) 1.10 H (0.001-0.429) % Immature Gran # (Auto) 0.09 H (0.000-0.0310) K/mm3 Lymphocytes % 19.0 L (20-51) % Monocytes % 10.3 H (0.0-9) % Eosinophils % 5.1 H (0.0-3.0) % Carbon Dioxide (24-32.6) mmol/L Anion Gap (6.8-13.8) mmol/L Random Glucose (70-110) mg/dL Lactic Acid, Venous (0.4-2.0) mmol/L ALT (19-67) U/L Total Protein (6.2-8.2) gm/dL Albumin (3.4-5.0) gm/dl Urine Protein (NEGATIVE) mg/dL Urine Glucose (UA) (NEGATIVE) mg/dL Urine Blood (NEGATIVE) /ul Urine Nitrate (NEGATIVE) Urine Bilirubin (NEGATIVE) mg/dl Prot Sulfosalicylic Acd (0) mg/dL Ur Leukocyte Esterase (NEGATIVE) /ul Urine RBC (0-5) /hpf Urine WBC (0-5) /hpf Urine Bacteria (NONE) Crossmatch See Detail 07/12/20 Range/Units 06:20 RBC (4.7-6.0) M/mm3 Hgb (13.5-18.0) gm/dL Hct (42.0-52.0) % MCHC (32-36) g/dl RDW (11.5-14.0) % Immature Gran % (Auto) (0.001-0.429) % Immature Gran # (Auto) (0.000-0.0310) K/mm3 Lymphocytes % (20-51) % Monocytes % (0.0-9) % Eosinophils % (0.0-3.0) % Carbon Dioxide 21.7 L (24-32.6) mmol/L Anion Gap 16.9 H (6.8-13.8) mmol/L Random Glucose 170 H D (70-110) mg/dL Lactic Acid, Venous (0.4-2.0) mmol/L ALT 16 L (19-67) U/L Total Protein 5.9 L (6.2-8.2) gm/dL Albumin 2.6 L (3.4-5.0) gm/dl Urine Protein (NEGATIVE) mg/dL Urine Glucose (UA) (NEGATIVE) mg/dL Urine Blood (NEGATIVE) /ul Urine Nitrate (NEGATIVE) Urine Bilirubin (NEGATIVE) mg/dl Prot Sulfosalicylic Acd (0) mg/dL Ur Leukocyte Esterase (NEGATIVE) /ul Urine RBC (0-5) /hpf Urine WBC (0-5) /hpf Urine Bacteria (NONE) Crossmatch - Exam Constitutional: Present: Alert, Oriented x3, Cooperative, Well developed, Well nourished, No distress, Morbidly obese ENT Exam: Present: normal ENT inspection, hearing grossly normal Neck: Present: non-tender, full range of motion, supple, normal inspection, trachea midline Breasts: Present: Exam deferred Respiratory: Present: chest non-tender, lungs clear, normal breath sounds, no respiratory distress, no accessory muscle use Cardiovascular/Chest: Present: normal peripheral pulses, regular rate, rhythm, no chest tenderness, no edema, no gallop, no JVD, no murmur, no rub, other - Fully healed longitudinal scar in mid thorax Abdomen: Present: Normal bowel sounds, soft, nontender, no rebound tenderness, obese, distended /Rectal: Present: Exam deferred Extremity: Present: normal range of motion, non-tender, normal inspection, no pedal edema, no calf tenderness, normal capillary refill, pelvis stable Skin Exam: Present: normal color, warm/dry, no cyanosis Lymphatic: Present: no adenopathy Neurologic: Present: marketing team lead II-XII nml as tested, no motor/sensory deficits, alert, normal mood/affect, oriented x 3 Appearance: Present: appropriate appearance, appropriate insight, neat, no memory impairment Eye contact: Present: cooperative, good eye contact, normal speech Thoughts: Present: normal thought pattern Assessment/Plan Plan Narrative: We will keep the patient for an additional night to continue watching his hemoglobin, H&H was ordered for 5 PM this evening in order to determine if he needs an additional unit of PRBC. In the meantime we will continue with physical therapy to optimize the patient's ambulation and balance. - Problems/Diagnosis (1) Acute blood loss anemia Problem: Acute (2) CAD (coronary artery disease) Problem: Chronic (3) Hypertension Problem: Chronic (4) Diabetes mellitus Problem: Chronic Qualifiers: Diabetes mellitus type: type 2 (5) History of partial nephrectomy Problem: Acute (6) UTI (urinary tract infection) Problem: Acute (7) Perinephric hematoma Problem: Acute
[2020-07-12] MEDS: BISACODYL 10 MG SUPP.RECT RC SCH ×3 (14:10→20:34)
[2020-07-12] MEDS: FERROUS SULFATE 325 MG TABLET PO SCH ×2 (14:10→16:59)
[2020-07-12 17:05] LABS: Hematocrit 28.4 % (42.0-52.0); Hemoglobin 8.9 gm/dL (13.5-18.0)
[2020-07-12] MEDS: ROSUVASTATIN CALCIUM 20 MG TABLET PO SCH (20:30)
[2020-07-13] MEDS: ACYCLOVIR 800 MG TABLET PO SCH ×2 (07:10→12:13)
[2020-07-13] MEDS: NORMAL SALINE 1,000 ML IV PRN (07:11)
[2020-07-13] MEDS: PANTOPRAZOLE SODIUM 20 MG TABLET.DR PO SCH (07:11)
[2020-07-13] MEDS: POLYETHYLENE GLYCOL 3350 17 GM PACKET PO SCH (09:16)
[2020-07-13] MEDS: glipiZIDE 10 MG TABLET PO SCH (09:16)
[2020-07-13] MEDS: ASPIRIN 81 MG TABLET.DR PO SCH (09:16)
[2020-07-13] MEDS: METOPROLOL TARTRATE 50 MG TABLET PO SCH (09:16)
[2020-07-13] MEDS: LISINOPRIL 20 MG TABLET PO SCH (09:17)
[2020-07-13] MEDS: FINASTERIDE 5 MG TABLET PO SCH (09:17)
[2020-07-13] MEDS: ASCORBIC ACID 500 MG TABLET PO SCH (09:17)
[2020-07-13] MEDS: metFORMIN HCL 500 MG TABLET PO SCH (09:18)
[2020-07-13] MEDS: PIOGLITAZONE HCL 15 MG TABLET PO SCH (09:18)
[2020-07-13] MEDS: CLOTRIMAZOLE/BETAMET DIPROP 15 APPL TUBE TP SCH (09:18)
[2020-07-13] MEDS: FERROUS SULFATE 325 MG TABLET PO SCH (09:18)
[2020-07-13] MEDS: BISACODYL 10 MG SUPP.RECT RC SCH (09:25)
[2020-07-13 09:55] LABS: Hematocrit 27.9 % (42.0-52.0); Hemoglobin 8.7 gm/dL (13.5-18.0); Mean Cell Volume 89.7 fl (78-100); Mean Corpuscular Hgb Conc 31.2 g/dl (32-36); Mean Platelet Volume 8.5 fl (8-11.3); Neutrophil # 5.3 K/mm3 (1.3-6.0); Neutrophil % 67.5 % (42-75.0); Platelet Count 244 K/mm3 (150-450); Red Blood Count 3.11 M/mm3 (4.7-6.0); Red Cell Distribution Width 14.7 % (11.5-14.0); White Blood Count 7.9 K/mm3 (4.0-10.5)
[2020-07-13 10:07] LABS: Albumin * 2.6 gm/dl (3.4-5.0); Anion Gap 13.8 mmol/L (6.8-13.8); BUN/Creatinine Ratio 6.9 (9.0-21.6); Bilirubin, Total 0.4 mg/dL (0.0-1.1); Ca. Corrected For Albumin 8.9 mg/dL (8.4-10.2); Calcium * 8.1 mg/dL (7.9-10.9); Carbon Dioxide 22.8 mmol/L (24-32.6); Potassium 3.6 mmol/L (3.4-4.6)
--- NOTE | 2020-07-13 10:40 | DS ---
(1) Acute blood loss anemia Problem: Acute (2) CAD (coronary artery disease) Problem: Chronic (3) Hypertension Problem: Chronic (4) Diabetes mellitus Problem: Chronic Qualifiers: Diabetes mellitus type: type 2 (5) History of partial nephrectomy Problem: Acute (6) UTI (urinary tract infection) Problem: Acute (7) Perinephric hematoma Problem: Acute Date of Discharge:: 07/13/20 Hospital Course: 75-year-old male admitted for posthemorrhagic anemia, left perinephric hematoma, UTI, and BETTE was evaluated at bedside and was found to be afebrile and in no acute distress. Patient has shown significant clinical improvement this morning, he is much stronger than when he arrived and his color has improved. The patient was transfused PRBCs in order to address his anemia and he tolerated the transfusion without any issues. Posttransfusion hemoglobin has remained stable indicating most likely that he is no longer bleeding in his hematoma. Patient's constipation has also resolved after he was treated with multiple laxatives during the hospitalization. Culture of his urine reveals the growth of Enterobacter cloacae which is resistant to the ceftriaxone that he was receiving during the hospitalization, however it is sensitive to Levaquin so we will prescribe him p.o. Levaquin for him to take home. The patient is being discharged home with the antibiotics and in order to repeat a CBC in 5 days to reevaluate his hemoglobin levels. He agrees with this plan. He was also instructed to follow-up with his PCP in 1 week. Procedures Performed: none Results and Findings: Pending Mircobiology Results 07/11/20 13:25 Blood Blood Culture - Preliminary NO GROWTH 24 HOURS 07/11/20 07:49 Blood Blood Culture - Preliminary NO GROWTH 24 HOURS Lab Pending Results 07/11/20 07:40: Troponin I Less than 0.017, Lipase 267 07/11/20 07:40: Lactic Acid, Venous 2.3 H* 07/11/20 07:49: WBC 14.3 H, RBC 3.59 L, Hgb 9.9 L, Hct 31.9 L, MCV 88.9, MCH 27.6, MCHC 31.0 L, RDW 14.6 H, Plt Count 302, MPV 9.9, Immature Gran % (Auto) 1.00 H, Immature Gran # (Auto) 0.14 H, Neutrophils % 73.6, Lymphocytes % 13.6 L, Monocytes % 7.7, Eosinophils % 3.5 H, Basophils % 0.6, Nucleated RBC % 0.0, Neutrophils # 10.6 H, Lymphocytes # 1.95, Monocytes # 1.1 H, Eosinophils # 0.5, Absolute Basophils 0.1 07/11/20 07:49: Sodium 138, Plasma Sodium 140, Potassium 3.9, Chloride 104, Carbon Dioxide 22.8 L, Anion Gap 15.1 H, BUN 16, Creatinine 1.61 H, Est GFR (Non-Af Amer) 45 L, BUN/Creatinine Ratio 9.9, Random Glucose 243 H, Calcium 8.4, Calcium Adj for Albumin 9.0, Total Bilirubin 0.4, AST 22, ALT 17 L, Alkaline Phosphatase 78, Total Protein 6.7, Albumin 2.9 L 07/11/20 11:09: Lactic Acid, Venous 2.3 H* 07/11/20 11:30: Urine Color [place] María, Urine Appearance Cloudy, Urine pH 5.0, Ur Specific [place] >=1.030, Urine Protein 100 H, Urine Glucose (UA) 100 H, Urine Ketones 15, Urine Blood 250 H, Urine Nitrate Positive H, Urine Bilirubin 1 H, Urine Ictotest Negative, Prot Sulfosalicylic Acd 2+ H, Urine Urobilinogen Normal, Ur Leukocyte Esterase 25 H, Urine RBC >50 H, Urine WBC 10-25 H, Ur Epithelial Cells 0-5, Urine Bacteria 4+ H, Urine Culture Comments Culture to follow 07/11/20 13:49: SARS-CoV-2 (PCR) Not detected 07/11/20 16:42: Hgb 8.0 L, Hct 25.7 L 07/11/20 21:22: Blood Type A Positive, Antibody Screen Negative, Crossmatch See Detail 07/11/20 22:42: Hgb 7.6 L*, Hct 24.5 L 07/12/20 06:20: WBC 8.4 D, RBC 3.13 L, Hgb 8.8 L, Hct 27.6 L, MCV 88.2, MCH 28.1, MCHC 31.9 L, RDW 14.6 H, Plt Count 251, MPV 8.9, Immature Gran % (Auto) 1.10 H, Immature Gran # (Auto) 0.09 H, Neutrophils % 63.9, Lymphocytes % 19.0 L, Monocytes % 10.3 H, Eosinophils % 5.1 H, Basophils % 0.6, Nucleated RBC % 0.0, Neutrophils # 5.3, Lymphocytes # 1.59, Monocytes # 0.9, Eosinophils # 0.4, Absolute Basophils 0.1 07/12/20 06:20: Sodium 139, Plasma Sodium 140, Potassium 3.6, Chloride 104, Carbon Dioxide 21.7 L, Anion Gap 16.9 H, BUN 12, Creatinine 1.25, Est GFR (Non- Af Amer) 60 D, BUN/Creatinine Ratio 9.6, Random Glucose 170 H D, Calcium 8.1, Calcium Adj for Albumin 8.9, Total Bilirubin 0.5, AST 20, ALT 16 L, Alkaline Phosphatase 59, Total Protein 5.9 L, Albumin 2.6 L 07/12/20 17:00: Hgb 8.9 L, Hct 28.4 L 07/13/20 09:50: WBC 7.9, RBC 3.11 L, Hgb 8.7 L, Hct 27.9 L, MCV 89.7, MCH 28.0, MCHC 31.2 L, RDW 14.7 H, Plt Count 244, MPV 8.5, Immature Gran % (Auto) 1.00 H, Immature Gran # (Auto) 0.08 H, Neutrophils % 67.5, Lymphocytes % 16.5 L, Monocytes % 6.9, Eosinophils % 7.3 H, Basophils % 0.8, Nucleated RBC % 0.0, Neutrophils # 5.3, Lymphocytes # 1.30 L, Monocytes # 0.5, Eosinophils # 0.6, Absolute Basophils 0.1 07/13/20 09:50: Sodium 139, Plasma Sodium 140, Potassium 3.6, Chloride 106, Carbon Dioxide 22.8 L, Anion Gap 13.8, BUN 8, Creatinine 1.16, Est GFR (Non-Af Amer) 65, BUN/Creatinine Ratio 6.9 L, Random Glucose 170 H, Calcium 8.1, Calcium Adj for Albumin 8.9, Total Bilirubin 0.4, AST 16, ALT 18 L, Alkaline Phosphatase 61, Total Protein 6.0 L, Albumin 2.6 L Discharge Location: Home Disposition: Home self-care Condition: Fair Face to Face Encounter completed per CMS Guidelines: No Discharge Activity: Activity as tolerated Discharge Diet: Consistent carbs Complete Home Medications List: Complete Home Medication List: Aspirin [Aspirin Enteric Coated] 81 mg PO DAILY 08/24/16 Dexlansoprazole [Dexilant] 30 mg PO DAILY 08/24/16 Finasteride [Proscar] 5 mg PO DAILY 08/24/16 Lisinopril [Zestril] 20 mg PO DAILY 08/24/16 Metoprolol Tartrate [Lopressor] 50 mg PO BID 08/24/16 Nitroglycerin [Nitrostat] 0.4 mg SL [id number] PRN 08/24/16 Pioglitazone HCl/Metformin HCl [Actoplus Met 15 mg-500 mg Tab] 1 ea PO BID 08/24/16 glipiZIDE [Glucotrol] 10 mg PO BID 08/24/16 rosuvastatin 10 mg tablet 20 mg PO DAILY tab 03/15/18 Ferrous Sulfate 325 mg PO TIDWM #0 tablet 07/13/20 Levofloxacin [Levaquin] 500 mg PO DAILY@1100 #5 tablet 07/13/20 Forms: Patient Portal Registration
[2020-07-13] MEDS ORDERED: LEVOFLOXACIN 500 MG TABLET PO SCH (11:00)
[2020-07-13 12:34] VITALS: BP 145/54
== END 2020-07-13 13:20 | disposition home or self-care (01) ==
LOC: ER 07:06 → MS 07:06
PROVIDERS: ADMIT Family Medicine; ATTEND Family Medicine